=== PATIENT | female | born 1945 | race Caucasian/White ===

== ENCOUNTER → 2016-07-25 | Outpatient (CLI) | payer OTHER | END | disposition home or self-care (01) | LOC: GMAL 11:08 | PROVIDERS: ATTEND Family Medicine | DX: D51.3 Other dietary vitamin B12 deficiency anemia (principal) ==

== ENCOUNTER → 2017-07-24 | Outpatient (CLI) | payer OTHER | END | disposition home or self-care (01) | LOC: GMAL 12:36 | PROVIDERS: ATTEND Family Medicine | DX: D51.3 Other dietary vitamin B12 deficiency anemia (principal); R53.83 Other fatigue ==

== ENCOUNTER → 2018-02-05 | Outpatient (CLI) | payer OTHER | LOC: GMAL 13:40 | PROVIDERS: ATTEND Family Medicine | DX: E55.9 Vitamin D deficiency, unspecified (principal) ==

== ENCOUNTER → 2018-07-02 | Outpatient (CLI) | payer OTHER ==
--- NOTE | 2018-07-03 09:32 | MRI ---
EXAM DESCRIPTION: Lumbar Spine w/o Contrast CLINICAL HISTORY: 73 years Female, RADICULOPATHY COMPARISON: MR lumbar spine 10/14/2014. TECHNIQUE: Multisequence, multiplanar images of the lumbar spine without intravenous contrast. FINDINGS: For the purpose of this report, the designated L5-S1 disc space will be referred to as axial T2 image 3. Vertebrae: No acute fracture. No acute compression deformity. Acute Modic type I degenerative endplate change at anterior L4-L5. There is mild lumbar lordosis. 4 mm grade 1 anterolisthesis of L4 on L5 is likely secondary to facet arthropathy. Spinal cord: The conus medullaris terminates at T12-L1. The nerve roots of the cauda equina are normal. Discs, facets, spinal canal, and neural foramina: Disc desiccation at L2-L3 and below. Moderate L4-5 disc space narrowing. L1-L2: No significant findings. L2-L3: No disc bulge. Severe facet arthropathy. Moderate spinal canal stenosis with AP narrowing to 8 mm. Mild bilateral neural foraminal stenosis. L3-L4: No disc bulge. Severe facet arthropathy. Moderate spinal canal stenosis with AP narrowing to 6 mm. Mild bilateral neural foraminal stenosis. L4-5: Unroofing of the posterior disc space and superimposed moderate disc bulge eccentric towards the right. Severe bilateral facet and ligament flavum hypertrophy. Severe spinal canal stenosis with AP narrowing to 1-2 mm. Moderate right and mild left neural foraminal stenosis. L5-S1: Small disc bulge. Severe facet arthropathy. Mild spinal canal stenosis. Neuroforamina are patent. Paraspinous soft tissues: Moderate periarticular soft tissue edema about the left greater than right L4-5 facet joints. IMPRESSION: 1. No acute fracture or acute compression deformity. 2. Lumbar spondylosis greatest at L4-5 where there is grade 1 anterolisthesis of L4 and L5 secondary to facet arthropathy. This contributes to severe spinal canal stenosis with AP narrowing to 1-2 mm. 3. Moderate periarticular soft tissue edema about the L4-5 facet joints may be reactive or represent active inflammation. 4. Moderate right L4 neural foraminal stenosis. Mild neuroforaminal stenosis elsewhere. 5. No significant interval change, especially at L4-5, when compared to 10/14/2014. Electronically signed by: Tyson Partida MD 07/03/2018 9:28 AM CDT
== END ==
LOC: MRI 13:35
PROVIDERS: ATTEND Physical Medicine & Rehabilitation
DX: M51.16 Intervertebral disc disorders with radiculopathy, lumbar region (principal); M48.062 Spinal stenosis, lumbar region with neurogenic claudication; M47.896 Other spondylosis, lumbar region

== ENCOUNTER → 2019-06-24 | Outpatient (CLI) | payer OTHER | DX: D51.3 Other dietary vitamin B12 deficiency anemia (principal); R53.83 Other fatigue; E55.9 Vitamin D deficiency, unspecified; E78.49 Other hyperlipidemia ==

== ENCOUNTER → 2020-01-27 | Outpatient (CLI) | payer OTHER | LOC: GMAL 11:21 | PROVIDERS: ATTEND Family Medicine | DX: R53.83 Other fatigue (principal); E78.49 Other hyperlipidemia; Z79.899 Other long term (current) drug therapy ==